=== PATIENT | female | born 1980 | race Caucasian/White ===

== ENCOUNTER 2017-06-14 09:54 | Day surgery (SDC) | payer BC ==
[2017-06-13 14:59] VITALS: BMI 27.3
[~2017-06-14 09:54] MED LIST: FLU VACC QS2017-18 36 mo. & older 0.5 ML SYRINGE IM ONE
--- NOTE | 2017-06-14 11:53 | ULT ---
LEFT THYROID FINE NEEDLE ASPIRATION: HISTORY: Left thyroid nodule. COMPARISON: Thyroid ultrasound 04/20/17. FINDINGS: Left neck was prepped and draped in normal sterile fashion. Timeout was performed. Informed consent was already obtained. The cystic thyroid nodule in the left lobe was accessed and aspiration of the papillary component was performed. A total of 4 passes with a 25-gauge needle was performed. IMPRESSION: Technically successful left thyroid lobe fine needle aspiration. Pathology is pending. POS: TEN
[2017-06-14 11:56] VITALS: BP 138/69; TEMP 98.6
== END 2017-06-14 11:30 | disposition home or self-care (01) ==
LOC: ULT 09:54
PROVIDERS: ATTEND Specialist
PROC: 0G9G3ZX Drainage of Left Thyroid Gland Lobe, Percutaneous Approach, Diagnostic (ICD-10-PCS; principal; 2017-06-14)
DX: E04.2 Nontoxic multinodular goiter (principal); Z88.0 Allergy status to penicillin; Z79.3 Long term (current) use of hormonal contraceptives; Z79.899 Other long term (current) drug therapy; Z90.721 Acquired absence of ovaries, unilateral; Z83.3 Family history of diabetes mellitus; Z82.49 Family history of ischemic heart disease and other diseases of the circulatory system
CPT/HCPCS: 10022; 76942; 88173; 88305

== ENCOUNTER → 2018-02-14 | Day surgery (SDC) | payer BC ==
[2018-02-13 09:15] VITALS: BMI 27.0
[~2018-02-14] MED LIST changes: +Bacitracin Zinc Ointment 30 gm TUBE ONE; +Dexamethasone 20 MG/5 ML VIAL ONE; -FLU VACC QS2017-18 36 mo. & older 0.5 ML SYRINGE IM ONE; +Fentanyl 100 MCG/2 ML VIAL ONE; +Lidocaine 1% PF 5 ML VIAL ONE; +Lidocaine 1% w/Epinephrine 1:100K 30 ML VIAL ONE; +Metoclopramide HCl 10 MG/2 ML VIAL ONE; +Midazolam HCl 2 mg/2 ml Vial ONE; +Morphine 4 MG/ML VIAL ONE; +PROPOFOL 200 MG/20 ML VIAL ONE; +diphenhydrAMINE 50 MG/ML VIAL ONE; +ePHEDrine/0.9% NaCl/PF SYRINGE 50 mg/10 ml ONE
[2018-02-14 09:23] LABS: BHCG - Serum Negative (NEGATIVE); Pregs Control Background? CLEAR/WHITE (CLR/WHITE); Pregs Control Bar Appear? YES (CONTROL BAR)
--- NOTE | 2018-02-15 09:45 | OP ---
PREOPERATIVE DIAGNOSIS: Left thyroid mass. POSTOPERATIVE DIAGNOSIS: Left hemorrhagic follicular cyst. PROCEDURES PERFORMED: Left thyroid lobectomy with laryngeal nerve monitoring. PROCEDURE IN DETAIL: After consent was obtained, the patient was identified, brought to the operatin g room and placed on the operating table in supine position. General endotracheal anesthesia was obt ained with a laryngeal nerve monitoring endotracheal tube. It was documented to be in place under vi princess laryngoscopy. We then documented that it was functioning and proceeded with prepping and draping the patient. Natural skin crease was identified in the lower neck and it was infiltrated with 1% li docaine with 1:100,000 epinephrine. We then made our incision through the skin, subcutaneous tissues , and platysma. Subplatysmal flaps were elevated and self-retaining retractor was placed. We then d ivided the strap muscles and dissected down to the thyroid capsule. The thyroid capsule was then dis sected from the underlying strap muscles and allowing the thyroid to be finger dissected from the aden rounding connective tissue, and delivered into the wound. Inferior vessels were then identified and suture ligated as was the middle thyroid vein and superior thyroid artery and veins. The recurrent l aryngeal nerve was identified and dissected along its course to the cricothyroid muscle. We then tra nsected the thyroid ligament and we were able to mobilize the gland more medially. The isthmus was d ivided in a hemostatic fashion sent for frozen section. 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 The decision was made not to proceed with removing the c ontralateral side. Hemostasis was obtained and the wound was closed in layers with the strap muscles being reapproximated as well as the platysma. Skin was closed in 2 layers with absorbable suture fo r the deep layer and 6-0 Prolene for the skin. Sterile dressing was applied. No drains were used. The patient was awakened, extubated, and taken to recovery room where she remained in stable conditio n prior to discharge home.
== END ==
LOC: SDC 08:04
PROVIDERS: ATTEND Specialist
PROC: 0GTG0ZZ Resection of Left Thyroid Gland Lobe, Open Approach (ICD-10-PCS; principal; 2018-02-14)
DX: E04.1 Nontoxic single thyroid nodule (principal); Z88.0 Allergy status to penicillin
CPT/HCPCS: 36415; 84703; 85014; 88307; 88331; 96374; 96375; J1100; J1200; J2001; J2250; J2270; J2704; J2765; J3010